=== PATIENT | male | born 1990 | race Caucasian/White ===

== ENCOUNTER 2021-12-18 16:25 | Emergency (ER) | payer OTHER ==
[2021-12-18 17:28] VITALS: BP 142/90; PULSE 74; RESP 18; TEMP 99.1; BMI 27.1
[2021-12-18] MEDS ORDERED: CIPROFLOXACIN 500 MG TABLET (RESTRICTED TO ID) PO ONE (18:41)
[2021-12-18 18:42] LABS: EPI CELLS 11 /uL (0-25.1); HYALINE CASTS 1 /uL (0-3.1); PH,URINE 6.5 (5.0-8.0); URINE APPEARANCE CLOUDY; URINE BACTERIA 106 /uL (0-1359); URINE BILIRUBIN NEGATIVE (NEGATIVE); URINE COLOR RED; URINE GLUCOSE (UA) NEGATIVE (NEGATIVE); URINE KETONE NEGATIVE (NEGATIVE); URINE LEUK ESTERASE 1+ (NEGATIVE); URINE NITRITE NEGATIVE (NEGATIVE); URINE PROTEIN 2+ (NEGATIVE); URINE RBC 7651 /uL (0-23.9); URINE UROBILINOGEN 0.2 mg/dL (0.2-1.0); URINE WBC 56 /uL (0-25.8)
[2021-12-18 19:02] LABS: BASO % 0.3 % (0-2.0); EOS % 0.3 % (0-4.5); HEMATOCRIT 44.1 % (35.4-49); HEMOGLOBIN 15.2 GM/dL (11.7-16.9); LYMPH % 8.4 % (8-40); MCH 30.7 pg (25.7-33.7); MCHC 34.6 g/dl (32.0-35.9); MEAN CELL VOLUME 88.8 fl (80-96); MEAN PLT VOLUME 6.2 fl (7.5-11.1); MONO % 3.4 % (3.8-10.2); NEUT % 87.6 % (42.8-82.8); PLATELET COUNT 333 10^3/uL (134-434); RBC 4.97 M/mm3 (4.00-5.60); RDW 13.1 % (11.9-15.9); WHITE BLOOD COUNT 15.2 K/mm3 (4.0-10.0)
[2021-12-18 19:09] LABS: INR 1.1 (0.83-1.09); PROTHROMBIN TIME (PATIENT) 12.7 SEC (9.7-13.0)
[2021-12-18 19:11] LABS: ACTIVATED PTT 32.6 SECONDS (25.2-36.5)
[2021-12-18 19:23] LABS: CALCIUM 9.5 mg/dL (8.5-10.1)
[2021-12-18 19:24] LABS: ALBUMIN 4.2 g/dl (3.4-5.0); BLOOD UREA NITROGEN 6.8 mg/dL (7-18)
[2021-12-18 19:27] LABS: CREATININE 0.9 mg/dL (0.55-1.3)
[2021-12-18 19:29] LABS: BILIRUBIN,TOTAL 0.5 mg/dL (0.2-1); TOT PROT 7.8 g/dl (6.4-8.2)
== END 2021-12-18 19:59 | disposition home or self-care (01) ==
LOC: JER 16:25
DX: R31.0 Gross hematuria (principal)
CPT/HCPCS: 36415; 80053; 81003; 85025; 85610; 85730; 86850; 86900; 86901; 87086; 93005; 93010; 99284-25; C9803-CS; U0003; U0005